=== PATIENT | female | born 1965 | race African-American/Black ===

== ENCOUNTER 2024-06-08 05:14 | Observation (INO) | payer OTHER ==
[2024-06-08 05:22] VITALS: BMI 26.9
[2024-06-08] MEDS ORDERED: FAMOTIDINE 10 MG/ML VIAL IVPB ONE (06:14)
[2024-06-08] MEDS: FAMOTIDINE 20 MG/50 ML IVPB 20 MG/50 ML MG IVPB ONE (06:52)
[2024-06-08] MEDS: LACTATED RINGERS SOLUTION 1000 ML INFUS.BAG IV ONE (06:52)
[2024-06-08 07:08] LABS: BASO % 0.1 % (0-2.0); EOS % 0.4 % (0-4.5); HEMATOCRIT 38.2 % (32.4-45.2); HEMOGLOBIN 12.9 GM/dL (10.7-15.3); LYMPH % 8.8 % (8-40); MCH 35.4 pg (25.7-33.7); MCHC 33.7 g/dl (32.0-36.0); MEAN CELL VOLUME 104.9 fl (80-96); MEAN PLT VOLUME 9.9 fl (7.5-11.1); MONO % 6.1 % (3.8-10.2); NEUT % 84.6 % (42.8-82.8); PLATELET COUNT 205 10^3/uL (134-434); RBC 3.64 M/mm3 (3.60-5.2); RDW 12.5 % (11.6-15.6)
[2024-06-08 07:18] LABS: POTASSIUM 3.9 mmol/L (3.5-5.1)
[2024-06-08 07:20] LABS: ALBUMIN 3.7 g/dl (3.4-5.0); CALCIUM 9.9 mg/dL (8.5-10.1)
[2024-06-08 07:21] LABS: BLOOD UREA NITROGEN 5.8 mg/dL (7-18); MAGNESIUM 1.9 mg/dL (1.8-2.4)
[2024-06-08 07:24] LABS: CREATININE 0.9 mg/dL (0.55-1.3)
[2024-06-08 07:25] LABS: BILIRUBIN,TOTAL 0.7 mg/dL (0.2-1); TOT PROT 6.9 g/dl (6.4-8.2)
[2024-06-08 07:44] LABS: LACTIC ACID 3.7 mmol/L (0.4-2.0)
[2024-06-08] MEDS ORDERED: ACETAMINOPHEN INJECTION 100 ML ONE (07:50)
[2024-06-08] MEDS: ACETAMINOPHEN 1000 MG/100 ML BAG IVPB ONE (07:50)
[2024-06-08 08:10] LABS: URINE APPEARANCE CLEAR; URINE BILIRUBIN NEGATIVE (NEGATIVE); URINE COLOR YELLOW; URINE GLUCOSE (UA) NEGATIVE (NEGATIVE); URINE KETONE NEGATIVE (NEGATIVE); URINE LEUK ESTERASE NEGATIVE (NEGATIVE); URINE NITRITE NEGATIVE (NEGATIVE); URINE PROTEIN NEGATIVE (NEGATIVE); URINE UROBILINOGEN 0.2 mg/dL (0.2-1.0)
[2024-06-08] MEDS: VANCOMYCIN ORAL SOLUTION 125 MG/2.5 ML PO ONE (08:34)
[2024-06-08] MEDS: LACTATED RINGERS SOLUTION 1,000 ML/1,000 ML INFUS.BAG IV SCH (08:35)
[2024-06-08] MEDS ORDERED: KETOROLAC TROMETHAMINE 15 MG/ML VIAL IVPUSH PRN (10:31)
[2024-06-08] MEDS ORDERED: cefTRIAXone SODIUM 1 GM VIAL ONE (12:22)
[2024-06-08] MEDS: CEFTRIAXONE 1 G/50 ML PREMIX 50 ML IVPB SCH (13:03)
[2024-06-08] MEDS: ASPIRIN/DIPYRIDAMOLE 25 MG/200 MG CAPSULE PO SCH (14:24)
[2024-06-08] MEDS: ACETAMINOPHEN 1000 MG/100 ML BAG IVPB SCH (15:43)
[2024-06-08] MEDS: ATORVASTATIN CA 10 MG TABLET (FP) PO SCH (21:19)
[2024-06-09] MEDS: HYDROCHLOROTHIAZIDE 25 MG TABLET (FP) PO ONE (08:04)
[2024-06-09] MEDS: amLODIPine BESYLATE 2.5 MG TABLET (FP) PO SCH (09:20)
[2024-06-09] MEDS: ENOXAPARIN NA (PORCINE) 40 MG/0.4 ML DISP.SYRIN SQ SCH (09:26)
[2024-06-09 10:37] LABS: BASO % 0.5 % (0-2.0); EOS % 4.2 % (0-4.5); HEMATOCRIT 36.4 % (32.4-45.2); LYMPH % 38.4 % (8-40); MCH 34.6 pg (25.7-33.7); MEAN CELL VOLUME 104.8 fl (80-96); MEAN PLT VOLUME 9.9 fl (7.5-11.1); MONO % 9.6 % (3.8-10.2); NEUT % 47.3 % (42.8-82.8); PLATELET COUNT 206 10^3/uL (134-434); RBC 3.47 M/mm3 (3.60-5.2); RDW 12.4 % (11.6-15.6); WHITE BLOOD COUNT 5.9 K/mm3 (4.0-10.0)
[2024-06-09 10:49] LABS: POTASSIUM 4.6 mmol/L (3.5-5.1)
[2024-06-09 10:57] LABS: ALBUMIN 3.5 g/dl (3.4-5.0); CALCIUM 9.9 mg/dL (8.5-10.1); MAGNESIUM 2.1 mg/dL (1.8-2.4)
[2024-06-09 11:00] LABS: CREATININE 0.7 mg/dL (0.55-1.3)
[2024-06-09 11:02] LABS: BILIRUBIN,TOTAL 0.6 mg/dL (0.2-1); TOT PROT 6.5 g/dl (6.4-8.2)
[2024-06-09 14:19] VITALS: BP 150/93; PULSE 66; RESP 18; TEMP 97.9
== END 2024-06-09 15:53 | disposition home or self-care (01) ==
LOC: JER 05:14 → JERBED 09:46 → UNDOADMOB 09:46 → INTOOBSV 09:46 → J8W 14:57 → JERBED 14:57 → J8W 06-09 14:27
PROVIDERS: ADMIT Internal Medicine; ATTEND Nurse Practitioner Family
PROC: 3E03329 Introduction of Other Anti-infective into Peripheral Vein, Percutaneous Approach (ICD-10-PCS; principal; 2024-06-09)
PROC: 3E0337Z Introduction of Electrolytic and Water Balance Substance into Peripheral Vein, Percutaneous Approach (ICD-10-PCS; 2024-06-09)
PROC: 3E033GC Introduction of Other Therapeutic Substance into Peripheral Vein, Percutaneous Approach (ICD-10-PCS; 2024-06-09)
DX: A09 Infectious gastroenteritis and colitis, unspecified (principal); Z98.890 Other specified postprocedural states; I10 Essential (primary) hypertension; E78.5 Hyperlipidemia, unspecified; K59.00 Constipation, unspecified; D68.59 Other primary thrombophilia; R10.9 Unspecified abdominal pain; Z91.013 Allergy to seafood
CPT/HCPCS: 0241U-QW; 36415; 74177-TC; 80053; 81003; 83605; 83690; 83735; 85025; 87045; 87046; 87086; 87186; 87324; 87449; 99285-25; G0378; J0131; Q9967